=== PATIENT | male | born 1975 | race Caucasian/White ===

== ENCOUNTER 2020-07-16 09:35 | Outpatient (CLI) | payer MEDICAID ==
[~2020-07-16] VITALS: Ht 195.6 cm; Wt 102.5 kg
[2020-07-16 09:59] VITALS: BP 99/64
--- NOTE | 2020-07-16 11:44 | Consultation ---
DATE OF CONSULTATION: 07/16/2020 CHIEF COMPLAINT: Referral for abdominal pain. PAST MEDICAL HISTORY: 1. BPH. 2. Depression. 3. GERD. 4. Peptic ulcer disease. PAST SURGICAL HISTORY: Hernia repair. MEDICATIONS: 1. Wellbutrin. 2. Finasteride. FAMILY HISTORY: Noncontributory. SOCIAL HISTORY: The patient denies any tobacco, alcohol, or drug abuse. REVIEW OF SYSTEMS: Negative. PHYSICAL EXAMINATION: VITAL SIGNS: Temperature 97.9, pulse 83, respirations 20, blood pressure 99/64. Height is 6 feet 5 inches, weight is 226. HEENT: Normocephalic and atraumatic. Sclerae anicteric. NECK: Supple. No evidence of obvious lymphadenopathy. CARDIOVASCULAR: Regular rate and rhythm. Plus S1, S2. LUNGS: Clear to auscultation bilaterally. ABDOMEN: Positive bowel sounds. Soft and nontender. No rebound. No guarding. No peritoneal sign. EXTREMITIES: No cyanosis, no clubbing, no edema. ASSESSMENT AND PLAN: This is a 45-year-old male with abdominal pain, mostly exercise induced. No evidence of any hernia on exam. The patient is a hardcore exercise person and do lot of sit-ups each day, so this can be either muscle injury or muscle cramps. We will send the blood test for electrolytes including calcium and magnesium level. The patient to come back for followup. Eric Simpson M.D. DR: Frandy JOB#: [id number] CC:
[2020-07-16] MEDS ORDERED: BUPROPION XL300 MG ORAL (13:38)
== END 2020-07-16 11:35 | disposition home or self-care (01) ==
LOC: PAN 09:35
DX: R10.9 Unspecified abdominal pain (principal); F32.9 Major depressive disorder, single episode, unspecified; K21.9 Gastro-esophageal reflux disease without esophagitis; Z87.11 Personal history of peptic ulcer disease; Z79.899 Other long term (current) drug therapy
CPT/HCPCS: 99203